=== PATIENT | female | born 1975 | race Two or more races ===

== ENCOUNTER 2019-08-24 14:49 | Emergency (ER) | payer OTHER ==
[~2019-08-24] VITALS: Ht 165.1 cm; Wt 77.6 kg
[2019-08-24] MEDS ORDERED: SYNTHROID75 MCG (15:11)
== END 2019-08-24 17:45 | disposition home or self-care (01) ==
LOC: ER 14:49
DX: D64.89 Other specified anemias (principal)

== ENCOUNTER 2024-05-06 14:04 | Emergency (ER) | payer OTHER ==
[~2024-05-06] VITALS: Ht 165.1 cm; Wt 68.5 kg
[~2024-05-06 14:04] MED LIST: SYNTHROID75 MCG
[2024-05-06] MEDS ORDERED: GUAIFENESIN/DEXTROMETHORPHAN 10ML BLIST.PACK PO ONE (16:00)
[2024-05-06] MEDS ORDERED: DEXAMETHASONE SODIUM PHOSPHATE 4 MG/ML VIAL IM ONE (16:00)
[2024-05-06 16:50] LABS: HEMATOCRIT 30.7 % (36.0-45.00); HEMOGLOBIN 9.6 g/dL (12.0-15.00); MEAN CELL VOLUME 78.4 fL (80.00-100.00); MEAN CORPUSCULAR HEMOGLOBIN 24.6 pg (27.00-32.0); MEAN CORPUSCULAR HGB CONC 31.3 g/dl (32.0-36.0); PLATELET COUNT 525 K/uL (150-450); RED BLOOD COUNT 3.91 M/uL (4.00-6.00)
[2024-05-06] MEDS ORDERED: TUSNEL LIQUID178 ML PO (17:40)
[2024-05-06] MEDS ORDERED: OSEL75CA PO (17:40)
== END 2024-05-06 17:52 | disposition home or self-care (01) ==
LOC: ER 14:06
PROVIDERS: Nurse Practitioner Family
DX: J10.1 Influenza due to other identified influenza virus with other respiratory manifestations (principal); E03.8 Other specified hypothyroidism; Z20.822 Contact with and (suspected) exposure to COVID-19